=== PATIENT | male | born 1980 | race Caucasian/White ===

== ENCOUNTER → 2022-02-01 15:34 | Outpatient (CLI) | payer OTHER, SELFPAY ==
--- NOTE | ~2022-02-01 | MR_ITS ---
EXAMINATION: MR knee RT wo con DATE: 02/01/2022 16:13 INDICATION: Right knee pain. TECHNIQUE: Magnetic resonance imaging (MRI) of the right knee was performed without intravenous contr ast. Sequences included axial PD-weighted FS FSE, coronal PD-weighted FSE and PD-weighted FS FSE, sag ittal PD-weighted FSE, and sagittal T2-weighted FS FSE. COMPARISON: None. FINDINGS: Medial compartment: Medial meniscus is normal. There is shallow partial-thickness cartilage loss of tibial condyle and fe moral condyle. There is deep partial thickness cartilage loss of femoral condyle involving the centra l articular surface with mild subchondral edema-like marrow signal intensity. Tiny osteophytes are no nacho. Lateral compartment: Lateral meniscus is normal. There is shallow partial-thickness cartilage loss of tibial condyle and f emoral condyle. Patellofemoral compartment: There is deep partial thickness cartilage loss of patellar medial facet. There is shallow partial-thi ckness cartilage loss of medial trochlea. Tiny osteophytes are noted. Ligaments and tendons: The anterior and posterior cruciate ligaments are normal. Medial collateral ligament demonstrates thi ckening and increased signal intensity proximally and surrounding edema, consistent with grade 2 spra in. There are changes of prior sprain of fibular collateral ligament characterized by thickening and increased signal intensity. There is moderate distal patellar tendinopathy. Fluid: There is a large knee joint effusion. There is trace fluid in a Weaver's cyst. There is mild pes anser inus bursitis. IMPRESSION: 1. Moderate chondrosis of medial and patellofemoral compartments and mild chondrosis of lateral jamal rtment. 2. Grade 2 sprain of medial collateral ligament. 3. Large knee joint effusion. Reviewed, dictated and finalized at location A. IMPRESSION: 1. Moderate chondrosis of medial and patellofemoral compartments and mild chond rosis of lateral compartment. 2. Grade 2 sprain of medial collateral ligament. 3. Large knee joint effusion.
== END ==
PROVIDERS: PCP Internal Medicine; Visit Provider Internal Medicine
DX: M25.561 Pain in right knee (principal); M22.2X1 Patellofemoral disorders, right knee; S83.411A Sprain of medial collateral ligament of right knee, initial encounter; M25.461 Effusion, right knee
CPT/HCPCS: 73721

== ENCOUNTER 2022-02-11 14:57 | Outpatient (NON) | payer OTHER, SELFPAY ==
[2022-02-11 19:01] LABS: Appearance Synovial Fluid Bloody (Clear); Color Synovial Fluid Red (Colorless); Source Synovial Fluid Synovial fluid
[2022-02-11 19:02] LABS: Lymphocytes Synovial Fluid 18 %; Neutrophils Synovial Fluid 82 % (0-25)
[2022-02-15 04:47] LABS: Glucose Synovial Fluid 79 mg/dL
[2022-02-22 12:47] LABS: Reference Lab Test Result Negative
== END 2022-02-11 14:58 | disposition home or self-care (01) ==
PROVIDERS: PCP Internal Medicine; Visit Provider Orthopaedic Surgery
DX: M25.461 Effusion, right knee (principal)
CPT/HCPCS: 36415; 82945; 84157; 86430; 89051; 89060

== ENCOUNTER 2024-01-05 15:50 | Outpatient (CLI) | payer OTHER, SELFPAY ==
--- NOTE | ~2024-01-05 | MR_ITS ---
EXAMINATION: MR shoulder LT wo con DATE: 01/05/2024 16:25 INDICATION: Left shoulder pain TECHNIQUE: Magnetic resonance imaging (MRI) of the left shoulder was performed without intravenous co ntrast. Sequences included axial PD-weighted FS FSE, coronal oblique PD-weighted FS FSE, coronal obli que T2-weighted FS FSE, sagittal PD-weighted FS FSE, and sagittal T1-weighted SE. COMPARISON: Left shoulder radiographs dated 12/22/2023 FINDINGS: Coracoacromial arch: The acromion undersurface is curved in morphology (type II). The coracoacromial ligament is normal. M ild acromioclavicular osteoarthritis. Rotator cuff: Mild supraspinatus and infraspinatus tendinopathy. There is a small tear extending 1 cm AP along the middle facet footplate of the conjoined portion of the supraspinatus and infraspinatus tendons. The t ear involves approximately two thirds of the tendon thickness with suggestion of involvement of at le ast a small portion of the articular side of the tendon. The bursal side of the tendon remains intact . The teres minor tendon is normal. Mild subscapularis tendinopathy with very small tear involving th e superolateral most margin of the lesser tuberosity footplate with there is mild underlying cystlike change. There is otherwise mild fatty atrophy of the teres minor muscle belly. Otherwise normal rota tor cuff muscle bulk and signal. Biceps tendon, glenoid labrum and glenohumeral cartilage: Mild tendinopathy of the long head biceps tendon with longitudinal split tear at the junction of the internal extra-articular portions of the tendon. Partial-thickness chondral ulceration appears to inv olve greater than 50% the cartilage thickness at the posterosuperior quadrant of the glenoid. There i s a tear of the overlying posterior glenoid labrum beginning at the 11:00 position and extending infe riorly to the 6:00 position. Associated small para labral cysts along the margin of the 7:30-9:30 pos terior glenoid. There is also subchondral cystic change at the 9:00 position of the glenoid which cou ld represent intraosseous extension of a prior labral cyst or cystic change related to overlying arturo dromalacia. Mild partial-thickness cartilage loss with subtle chondral surface irregularity at the ap ex and superomedial aspect of the humeral head. Fluid: Physiologic amount of fluid in the glenohumeral joint and biceps tendon sheath. No loose osteochondr al bodies. No abnormal increased fluid signal in the subacromial/subdeltoid bursa to suggest bursitis . Bones: Bone alignment is normal. No fracture or pathologic marrow replacing process. IMPRESSION: 1. 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 2. Small intrasubstance versus articular sided tear at the middle facet footplate of the conjoined po rtion of the supraspinatus and infraspinatus tendons. 3. Mild subscapularis tendinopathy with tiny tear at the superolateral corner of the lesser tuberosit y footplate. 4. Mild bicipital tendinopathy with longitudinal split tearing at the junction of the intra-articular and extra articular portions of the tendon. Reviewed, dictated and finalized at location L. IMPRESSION: 1. Mild to moderate glenohumeral osteoarthritis with tear of the posterior ananth oid labrum. 2. Small intrasubstance versus articular sided tear at the middle facet footpla te of the conjoined portion of the supraspinatus and infraspinatus tendons. 3. Mild subscapularis tendinopathy with tiny tear at the superolateral corner o f the lesser tuberosity footplate. 4. Mild bicipital tendinopathy with longitudinal split tearing at the junction of the intra-articular and extra articular portions of the tendon.
== END 2024-01-05 15:51 ==
LOC: MICIMG 15:51
PROVIDERS: PCP Orthopaedic Surgery; Visit Provider Orthopaedic Surgery
DX: M19.012 Primary osteoarthritis, left shoulder (principal); M75.22 Bicipital tendinitis, left shoulder; S46.012A Strain of muscle(s) and tendon(s) of the rotator cuff of left shoulder, initial encounter; X58.XXXA Exposure to other specified factors, initial encounter
CPT/HCPCS: 73221